=== PATIENT | female | born 1955 | race Caucasian/White ===

== ENCOUNTER 2016-05-23 13:51 | Outpatient (RCR) | payer MEDICARE ==
--- OUTSIDE RECORDS SUMMARY | 2016-04-12 13:17 | XMS REPORT | Continuity of Care Document ---
Author Author [facility] Organization [facility] Address Unknown Phone Unavailable Care Team Providers Care Blue Prints Trimmer Name Role Phone SHANTA PARISI MD PCP Insurance Providers Payer Name Policy Number Subscriber Name Relationship [employer] [id number] Ana Garcia 18 Self / Same As Patient Advance Directives Directive Response Recorded Date/Time Advance Directives Yes 07/16/14 11:47am Health Care Power of Manager Van Y jeanette- 07/16/14 11:47am Organ Donor No 07/16/14 11:47am Resuscitation Status Full Code 07/16/14 11:47am Problems No known problems or medical conditions. Medications Medication Dose Route Sig Days/Qty Instructions Order Date Discontinued Date Status Clarithromycin 03/06/09 08/22/12 Discontinued Oseltamivir Phosphate 03/06/09 08/22/12 Discontinued Celecoxib 200 Mg PO DAILY PRN can restart in three days 03/06/0910/29 Discontinued Promethazine HCl/Codeine 03/06/09 08/22/12 Discontinued Enalapril Maleate 20 Mg PO DAILY 08/22/12 08/24/12 Discontinued Methotrexate Sodium/Pf 7.5 Mg IJ Q7D 08/22/12 10/29/13 Discontinued [Humira] INJ Q14D 08/22/12 Active Acetaminophen 650 Mg PO EVERY 4HRS PRN 08/24/12 11/06/13 Discontinued Albuterol 2.5 Mg INH THREE TIMES A DAY 1 treatment three times a day 10/29/13 Discontinued Azithromycin 500 Mg PO DAILY 3 Days 08/24/12 10/29/13 Discontinued Cefdinir (Omnicef) 300 Mg PO DAILY 5 Days take for 5 days 08/24/1210/29 Discontinued Prednisone 40 Mg PO DAILY 3 Days 08/24/12 10/29/13 Discontinued Lactobacillus Rhamnosus Gg 1 Each PO DAILY 5 Days may use [employer] 08/24/12 10/29/13 Discontinued Methotrexate Sodium/Pf 0.9 Ml SQ WEEKLY 10/29/13 11/06/13 Discontinued Tramadol Hcl 50 Mg PO BEDTIME PRN PAIN 10/29/13 Active Oxycodone HCl (OxyCONtin) 1 Tab PO BEDTIME 20 Qty 10/29/13 07/16/14 Discontinued Hydroxychloroquine Sulfate 400 Mg PO DAILY 10/29/13 07/16/14 Discontinued Meloxicam (Mobic) 15 Mg PO DAILY 10/29/13 11/06/13 Discontinued Meloxicam (Mobic) 15 Mg PO BEDTIME 07/16/14 Active Enalapril Maleate 20 Mg PO BEDTIME 07/16/14 Active Methotrexate Sodium/Pf 0.9 Ml IJ Sunday07/16/14 Active Acetaminophen 650 Mg PO BEDTIME 07/16/14 Active Cephalexin Monohydrate (Keflex) 500 Mg PO FOUR TIMES DAILY 07-15-14 #12 FILLED 07/16/14 Active Social History Social History Problem Response Recorded Date/Time Alcohol Use Denies Use 07/16/2014 10:00am Recreational Drug Use No 07/16/2014 10:00am Recent Foreign Travel No 11/05/2013 1:08pm Recent Infectious Disease Exposure No 11/05/2013 1:08pm Hospitalization with Isolation Denies 11/07/2013 11:27am Smoking Status Never a Smoker 07/16/2014 11:47am Query Response Start Date Stop Date Smoking Status Never a Smoker Hospital Discharge Instructions Patient Instructions Physician Instructions Prescription: Call to Patients Pharmacy Patient Instructions: followup one week in office Discharge Diet: No Restrictions Drink 6-8 Glasses of Fluid/Day: Yes Driving Instructions: You May Drive Plan of Care Discharge Date 07/21/14 11:05am Disposition 30 STILL A PATIENT Instructions/Education Provided Cellulitis (DC) Prescriptions See Medications Section Referrals SHANTA PARISI MD (Unspecified) 07/28/14 Address: [address] [place] [id number] Reason(s) for Referral: 9:30 am Functional Status Query Response Date Recorded Comprehension Ability Understands Concepts July 20, 2014 9:06am Allergies, Adverse Reactions, Alerts Allergen Type Severity Reaction Status Last Updated Sulfa (Sulfonamide Antibiotics) ([id number]) Allergy Unknown Active 06/20 morphine Allergy Unknown ITCHING AND VOMITING Active 11/05/13 Codeine Adverse Reaction Mild gi symptoms Active 11/05/13 sulfamethoxazole ([id number]) Adverse Reaction Mild Active 11/05/13 Trimethoprim Adverse Reaction Mild Active 11/05/13 Immunizations Name Given Type Date of Pneumonia Vaccine 02/05/12 Historical Tetanus Booster (TDap) Unknown Historical influenza, split (incl. purified surface antigen) 07/17/14 Administered Vital Signs Acute Vital Signs Vital Response Date/Time Temperature (Fahrenheit) 98.1 degrees F (97.6 - 99.5) Temperature (Calculated Celsius) 36.01170 degrees C (36.4 - 37.5) Temperature Source Temporal Pulse Rate (adult) 60 bpm (60 - 90) Respiratory Rate 20 bpm (12 - 24) O2 Sat by Pulse Oximetry 97 % (88 - 100) Blood Pressure 134/77 mm Hg Pain Pain Intensity 0 Height (Feet) 5 feet Height (Inches) 3.00 inches Height (Calculated Centimeters) 160.866384 cm Weight (Pounds) 130 pounds Weight (Calculated Grams) 07074.009 gm Weight (Calculated Kilograms) 58.458137 kilograms Calculated BMI 23.03 Results Laboratory Results Test Name Result Units Flags Reference Collection Date/Time Result Date/ Time Comments White Blood Count 10.4 10^3/uL 4.3-11.0 07/19/2014 5:05am 07/19/2014 5: 52am Red Blood Count 3.66 10^6/uL L 4.35-5.85 07/19/2014 5:05am 07/19/2014 5: 52am Hemoglobin 9.8 G/DL L 11.5-16.0 07/19/2014 5:05am 07/19/2014 5:52am Hematocrit 31 % L 35-52 07/19/2014 5:05am 07/19/2014 5:52am Mean Corpuscular Volume 84 FL 80-99 07/19/2014 5:05am 07/19/2014 5: 52am Mean Corpuscular Hemoglobin 27 PG 25-34 07/19/2014 5:05am 07/19/2014 5: 52am Mean Corpuscular Hemoglobin Concent 32 G/DL 32-36 07/19/2014 5:05am 5:52am Red Cell Distribution Width 14.7 % H 10.0-14.5 07/19/2014 5:05am 2014 5:52am Platelet Count 273 10^3/uL 130-400 07/19/2014 5:05am 07/19/2014 5:52am Mean Platelet Volume 10.1 FL 7.4-10.4 07/19/2014 5:05am 07/19/2014 5: 52am Neutrophils (%) (Auto) 65 % 42-75 07/19/2014 5:05am 07/19/2014 5:52am Lymphocytes (%) (Auto) 25 % 12-44 07/19/2014 5:05am 07/19/2014 5:52am Monocytes (%) (Auto) 8 % 0-12 07/19/2014 5:05am 07/19/2014 5:52am Eosinophils (%) (Auto) 2 % 0-10 07/19/2014 5:05am 07/19/2014 5:52am Basophils (%) (Auto) 0 % 0-10 07/19/2014 5:05am 07/19/2014 5:52am Neutrophils # (Auto) 6.8 X 10^3 1.8-7.8 07/19/2014 5:05am 07/19/2014 5: 52am Lymphocytes # (Auto) 2.6 X 10^3 1.0-4.0 07/19/2014 5:05am 07/19/2014 5: 52am Monocytes # (Auto) 0.8 X 10^3 0.0-1.0 07/19/2014 5:05am 07/19/2014 5: 52am Eosinophils # (Auto) 0.2 10^3/uL 0.0-0.3 07/19/2014 5:05am 07/19/2014 5 :52am Basophils # (Auto) 0.0 10^3/uL 0.0-0.1 07/19/2014 5:05am 07/19/2014 5: 52am Neutrophils % (Manual) 83 % 07/16/2014 10:25am 07/16/2014 11:12am Band Neutrophils 0 % 07/16/2014 10:25am 07/16/2014 11:12am Lymphocytes % (Manual) 10 % 07/16/2014 10:25am 07/16/2014 11:12am Monocytes % (Manual) 7 % 07/16/2014 10:25am 07/16/2014 11:12am Eosinophils % (Manual) 0 % 07/16/2014 10:25am 07/16/2014 11:12am Basophils % (Manual) 0 % 07/16/2014 10:25am 07/16/2014 11:12am Clumped Platelets RARE GIANT PLATELET NOTED ON SMEAR 07/16/2014 10: 25am 07/16/2014 11:12am Anisocytosis SLIGHT 07/16/2014 10:25am 07/16/2014 11:12am Microcytosis SLIGHT 07/16/2014 10:25am 07/16/2014 11:12am Sodium Level 136 MMOL/L 135-145 07/16/2014 10:25am 07/16/2014 10:55am Potassium Level 3.9 MMOL/L 3.6-5.0 07/16/2014 10:25am 07/16/2014 10: 55am Chloride Level 102 MMOL/L 98-107 07/16/2014 10:25am 07/16/2014 10:55am Carbon Dioxide Level 27 MMOL/L 21-32 07/16/2014 10:25am 07/16/2014 10: 55am Blood Urea Nitrogen 19 MG/DL H 7-18 07/16/2014 10:25am 07/16/2014 10: 55am Creatinine 0.77 MG/DL 0.60-1.30 07/16/2014 10:25am 07/16/2014 10:55am BUN/Creatinine Ratio 07/16/2014 10:25am 07/16/2014 10:55am Estimat Glomerular Filtration Rate > 60 07/16/2014 10:25am 2014 10:55am GFR INTERPRETIVE DATA UNITS FOR ESTIMATED GFR (eGFR): mL/min/1.73 M2 REFERENCE RANGE FOR ESTIMATED GFR (eGFR) eGFR NORMAL eGFR >60 MODERATELY DECREASED eGFR 30-59 SEVERLY DECREASED eGFR 15-29 KIDNEY FAILURE <15 (OR DIALYSIS) Glucose Level 131 MG/DL H 70-105 07/16/2014 10:25am 07/16/2014 10:55am Calcium Level 9.5 MG/DL 8.5-10.1 07/16/2014 10:25am 07/16/2014 10:55am Total Bilirubin 0.8 MG/DL 0.1-1.0 07/16/2014 10:25am 07/16/2014 10: 55am Alkaline Phosphatase 91 U/L 40-136 07/16/2014 10:25am 07/16/2014 10: 55am Aspartate Amino Transf (AST/SGOT) 11 U/L 5-34 07/16/2014 10:25am 2014 10:55am Alanine Aminotransferase (ALT/SGPT) 11 U/L 0-55 07/16/2014 10:25am 04/2015 10:55am Total Protein 7.1 G/DL 6.4-8.2 07/16/2014 10:25am 07/16/2014 10:55am Albumin 3.7 G/DL 3.2-4.5 07/16/2014 10:25am 07/16/2014 10:55am Vancomycin Level Trough 12.9 UG/ML 10.0-20.0 07/17/2014 11:05am 2014 11:40am Microbiology Results Procedure Source Result Collection Date/Time Result Date/Time Wound Culture Ulcer, Foot, Right STAPHYLOCOCCUS AUREUS 07/17/2014 3:35pm 7:34am STREP SPECIES, BETA HEMOLYTIC 07/17/2014 3:35pm 07/19/2014 7:34am STAPHYLOCOCCUS AUREUS 07/17/2014 3:35pm 07/19/2014 7:34am STREP SPECIES, BETA HEMOLYTIC 07/17/2014 3:35pm 07/19/2014 7:34am STAPHYLOCOCCUS AUREUS 07/17/2014 3:35pm 07/19/2014 7:34am STREP, BETA HEMOLYTIC GROUP A 07/17/2014 3:35pm 07/19/2014 7:34am STAPHYLOCOCCUS AUREUS 07/17/2014 3:35pm 07/19/2014 7:34am STREP, BETA HEMOLYTIC GROUP A 07/17/2014 3:35pm 07/19/2014 7:34am Procedures No known history of procedures. Encounters Encounter Location Date/Time Discharged Inpatient Via [facility] 07/16/14 9:42am
[~2016-05-23 13:51] MED LIST: AC325T PO; ALB0.5V INH; AZIT500T PO; CEFD300C3 PO; CEPH250T PO; CEPH500C PO; CLAR-19; CLCX200C PO; ENAL20TA PO; HUMIRA INJ; HYDR200T46 PO; MELO-195 PO; METH25VI2 IJ; METH25VI24 IJ; METH25VI24 SQ; NITR-65 PO; OSLT75C; OXC10TCR PO; PANT20TA2 PO; PRCD5U; PRD20T PO; PROBIOTIC1 EACH PO; TRAM50TA2 PO
== END 2016-05-26 08:33 | disposition home or self-care (01) ==
DX: Z09 Encounter for follow-up examination after completed treatment for conditions other than malignant neoplasm (principal); M47.12 Other spondylosis with myelopathy, cervical region; Z98.1 Arthrodesis status

== ENCOUNTER → 2017-06-18 | Outpatient (CLI) | payer MEDICARE ==
--- NOTE | 2017-06-18 13:25 | Diagnostic Imaging Report ---
CLINICAL INDICATION: Patient with history of 3 C-spine surgeries and shoulder surgery. Patient recently having neck/shoulder pain and harder to move shoulders. EXAM: Axial CT scan of the cervical spine performed without IV contrast. Sagittal and coronal reformatted images were created. COMPARISON: CT scan of the cervical myelogram dated 10/21/2013. FINDINGS: Compared to the prior CT myelogram, there has been interval postop changes with C3-C4 anterior cervical interbody fusion. There is solid intervertebral bony bridging/fusion seen. Again seen C4-C7 anterior cervical interbody fusion with solid intervertebral bony bridging/fusion again seen. There are also interval postop changes with C2 through C5 posterior fusion with hardware with bilateral screws and spanning rods. There are also laminectomies at the C3-C4 levels with interval decompression of the previously seen area of severe central canal stenosis at the C3-C4 level. There is also interval resection of C3-C4 spurs causing bilateral neuroforaminal narrowing with only mild bony neuroforaminal narrowing present. There is interval removal of the previously seen C4 anterior cervical screws. C1-C2: There are stable degenerative spurs seen anteriorly. There is no significant bony central canal narrowing. C2-C3: Again seen suspected posterior disc bulge. There is no significant bony central spinal canal or neuroforaminal narrowing. C3-C4: As described above. C4-C5: Interval decompression of the thecal sac. There are stable small posterior vertebral spurs. There is no significant bony central canal or neuroforaminal narrowing. C5-C6: Stable small posterior vertebral spurs which cause stable mild impression upon the thecal sac. There is stable mild right neuroforaminal narrowing. C6-C7: Stable small posterior and left paracentral vertebral spurs which cause mild central canal narrowing. There is no significant bony neuroforaminal narrowing. C7-T1: There is no significant change to the diffuse disc bulge with moderate to severe loss of intervertebral disc height, endplate irregularity, and Schmorl's nodes. Again seen hypertrophic anterior disc spurs. There is no significant bony central canal narrowing. There is stable mild right neuroforaminal narrowing and no significant left neuroforaminal narrowing. There is moderate consolidation in air-fluid levels in the sphenoid sinus. Visualized upper lung hopkins show no significant abnormality. IMPRESSION: 1: There are interval postop changes with placement of C3-C4 anterior cervical disc fusion and C2 through C5 posterior fusion hardware. There are also interval C3-C4 laminectomies. There is interval decompression of the previously seen severe central canal narrowing at the C3-C4 level and also improved patency of the bilateral neuroforamen regions. There is interval solid bony fusion from the C3-C4 levels. 2: Besides removal of the C4 anterior cervical screws, the remainder of the C4-C7 anterior disc fusion hardware has not significantly changed. There is again seen solid bony fusion from C4-C7 levels. 3: There are stable severe degenerative disc changes at the C7-T1 level. 4: Cervical spine shows stable degenerative disease. Dictated by: Dictated on workstation # [id number]
== END ==
LOC: RAD 12:00
PROVIDERS: ATTEND Family Medicine
DX: M50.33 Other cervical disc degeneration, cervicothoracic region (principal); M25.511 Pain in right shoulder; M25.512 Pain in left shoulder; Z98.1 Arthrodesis status; Z98.890 Other specified postprocedural states
CPT/HCPCS: 72125

== ENCOUNTER 2017-09-04 15:22 | Outpatient (RCR) | payer MEDICARE ==
[2017-07-03 12:10] VITALS: BP 119/67
[2017-07-03] MEDS: CERTOLIZUMAB PEGOL SQ SCH (13:06)
[2017-07-03 13:09] VITALS: BP 119/67
[~2017-09-04] VITALS: Ht 157.5 cm; Wt 56.2 kg
[2017-09-04 15:20] VITALS: BP 125/72
[~2017-09-04 15:22] MED LIST changes: +AMLO5TAB2 PO; +CERT400K SQ; +HYDR200T78 PO; +MELA5TAB19 PO; +OXYC-529 PO
[2017-09-04] MEDS: CERTOLIZUMAB PEGOL SQ SCH (16:46)
== END 2017-10-01 | disposition home or self-care (01) ==
LOC: SDC 15:22
PROVIDERS: ATTEND Family Medicine
DX: M05.79 Rheumatoid arthritis with rheumatoid factor of multiple sites without organ or systems involvement (principal); M25.50 Pain in unspecified joint
CPT/HCPCS: 96372

== ENCOUNTER 2018-01-28 12:39 | Outpatient (RCR) | payer MEDICARE ==
[~2018-01-28] VITALS: Ht 157.5 cm; Wt 56.2 kg
[~2018-01-28 12:39] MED LIST changes: -AMLO5TAB2 PO; +AMLO5TAB7 PO
[2018-01-28 12:58] VITALS: BP 106/52
[2018-01-28] MEDS ORDERED: CERTOLIZUMAB PEGOL SQ SCH (13:00)
== END 2018-02-03 | disposition home or self-care (01) ==
LOC: SDC 12:39
PROVIDERS: ATTEND Family Medicine
DX: M05.79 Rheumatoid arthritis with rheumatoid factor of multiple sites without organ or systems involvement (principal); M25.50 Pain in unspecified joint
CPT/HCPCS: 36415; 82306; 96372

== ENCOUNTER 2018-09-06 12:20 | Outpatient (RCR) | payer MEDICARE ==
[2018-06-24 12:55] VITALS: BP 130/79
[2018-06-24] MEDS: CERTOLIZUMAB PEGOL SQ SCH (13:18)
[~2018-09-06] VITALS: Ht 157.5 cm; Wt 56.2 kg
[~2018-09-06 12:20] MED LIST changes: -AMLO5TAB7 PO; +AMLO5TAB9 PO
[2018-09-06 12:30] VITALS: BP 164/82
[2018-09-06] MEDS: CERTOLIZUMAB PEGOL SQ SCH (12:49)
== END 2018-09-22 | disposition home or self-care (01) ==
LOC: SDC 12:20
PROVIDERS: ATTEND Internal Medicine Rheumatology
DX: M05.79 Rheumatoid arthritis with rheumatoid factor of multiple sites without organ or systems involvement (principal)
CPT/HCPCS: 96372

== ENCOUNTER 2019-10-01 14:25 | Outpatient (RCR) | payer MEDICARE ==
[~2019-10-01 14:25] MED LIST changes: -OXYC-529 PO; +OXYC5TAB96 PO
== END 2019-11-11 14:15 | disposition home or self-care (01) ==
PROVIDERS: ATTEND Orthopaedic Surgery
DX: Z47.1 Aftercare following joint replacement surgery (principal); M06.9 Rheumatoid arthritis, unspecified; Z96.622 Presence of left artificial elbow joint; Z96.611 Presence of right artificial shoulder joint

== ENCOUNTER 2020-02-16 15:40 | Outpatient (RCR) | payer MEDICARE ==
[~2020-02-16 15:40] MED LIST changes: +AMLO-250 PO; -AMLO5TAB9 PO; +OXC5T PO; -OXYC5TAB96 PO
== END 2020-03-08 10:06 | disposition home or self-care (01) ==
PROVIDERS: ATTEND Internal Medicine Rheumatology
DX: S62.607D Fracture of unspecified phalanx of left little finger, subsequent encounter for fracture with routine healing (principal); X58.XXXD Exposure to other specified factors, subsequent encounter

== ENCOUNTER → 2021-02-01 | Outpatient (CLI) | payer MEDICARE ==
[2021-02-01 13:10] LABS: ALBUMIN 4.2 GM/DL (3.2-4.5); BILIRUBIN,TOTAL 0.4 MG/DL (0.1-1.0); CALCIUM 9.8 MG/DL (8.5-10.1); PHOSPHORUS 3.9 MG/DL (2.3-4.7); POTASSIUM 3.9 MMOL/L (3.6-5.0); TOTAL PROTEIN 7.9 GM/DL (6.4-8.2)
== END ==
LOC: LAB 12:21
PROVIDERS: ATTEND Internal Medicine
DX: E55.9 Vitamin D deficiency, unspecified (principal); E21.1 Secondary hyperparathyroidism, not elsewhere classified
CPT/HCPCS: 36415; 80053; 82306; 83970; 84100

== ENCOUNTER → 2021-03-24 | Outpatient (CLI) | payer MEDICARE ==
--- NOTE | 2021-03-24 14:32 | Diagnostic Imaging Report ---
EXAMINATION: US Abdomen limited. TECHNIQUE: Multiple real-time grayscale images were obtained over the right upper quadrant in various projections. HISTORY: RUQ PAIN. COMPARISON: None available. FINDINGS: Pancreas: The pancreas is nonvisualized secondary to overlying bowel gas. Liver: The liver is normal in echogenicity and contour. No focal lesions are seen. The portal vein is patent with hepatopetal flow. Gallbladder and biliary tree: Gallbladder is normal without wall thickening, pericholecystic fluid, or sonographic Soto sign. There is mild extrahepatic biliary duct dilatation. No intrahepatic biliary ductal dilatation. The common duct measures 1.1 cm. Right kidney: The right kidney is normal without hydronephrosis. Aorta and IVC: The visualized aorta and inferior vena cava are normal. Fluid: No ascites is seen. There is an indeterminate hypoechoic lesion seen posterior to the gallbladder measuring 3.6 x 3.9 x 3.9 cm. IMPRESSION: 1. Dilatation of the common bile duct measuring up to 1.1 cm. 2. Indeterminate 3.9 cm hypoechoic lesion posterior to the gallbladder. Consider further evaluation with MRCP with IV contrast to evaluate biliary duct dilatation in this lesion. Dictated by: Dictated on workstation # [id number]
== END ==
LOC: RAD 13:44
PROVIDERS: ATTEND Physician Assistant
DX: K82.9 Disease of gallbladder, unspecified (principal); K83.8 Other specified diseases of biliary tract
CPT/HCPCS: 76705

== ENCOUNTER → 2021-03-28 | Outpatient (CLI) | payer MEDICARE ==
--- NOTE | 2021-03-28 09:19 | Diagnostic Imaging Report ---
EXAMINATION: MRI of the abdomen without contrast. MRCP TECHNIQUE: Multiplanar, multisequence MR images of the abdomen were obtained without intravenous contrast including 3D MIP MRCP images. HISTORY: Right upper quadrant pain, possible liver mass on ultrasound. COMPARISON: None available. FINDINGS: The liver is normal without steatosis. No suspicious liver lesions are seen. No surface nodularity. Gallbladder is distended but no stones are seen. There is mild dilation of the common bile duct measuring up to 11 mm. No stones or masses seen. No intrahepatic biliary ductal dilation. No correlate is seen for the sonographic abnormality of a hypoechoic lesion posterior to the gallbladder. This may have represented a loop of bowel. Pancreas is normal. Spleen is normal. Adrenal glands are normal. Kidneys are normal without hydronephrosis. Visualized bowel is normal. No lymphadenopathy is seen. Lung bases are clear. No osseus lesions are seen. The left hemidiaphragm is elevated. IMPRESSION: 1. Mild dilation of the common bile duct measuring up to 11 mm. No stones or masses seen. 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 2. No correlate for the scintigraphic abnormality of the mass posterior to the gallbladder. This may represent a distended loop of bowel. No masses seen on this exam. Dictated by: Dictated on workstation # [id number]
== END ==
LOC: RAD 08:00
PROVIDERS: ATTEND Physician Assistant
DX: R10.11 Right upper quadrant pain (principal)
CPT/HCPCS: 74181

== ENCOUNTER → 2021-04-04 | Outpatient (CLI) | payer MEDICARE ==
[~2021-04-04] MED LIST changes: +GADOTERATE 0.5 MMOL/ML (CLARISCAN) 15 ML VIAL IV ONE
--- NOTE | 2021-04-04 09:54 | Diagnostic Imaging Report ---
EXAMINATION: MRI of the abdomen with and without contrast. TECHNIQUE: Multiplanar, multisequence MR images of the abdomen were obtained with and without intravenous contrast. HISTORY: Liver lesion. COMPARISON: None available. FINDINGS: The liver is normal size. There is no hepatic steatosis. No suspicious liver lesions are seen. No surface nodularity. The gallbladder is normal. There is unchanged mild dilation of the common bile duct. Pancreas is normal. The pancreatic duct is normal. Spleen is normal. Adrenal glands are normal. The kidneys are normal. There is no hydronephrosis. Visualized bowel is normal. No lymphadenopathy is seen. Lung bases are clear. No osseus lesions are seen. There has been a lumbar spine fusion. IMPRESSION: 1. No liver mass is seen. No abnormal enhancement of the liver. 2. Unchanged mild dilation of the common bile duct. Dictated by: Dictated on workstation # [id number]
== END ==
LOC: RAD 08:00
PROVIDERS: ATTEND Surgery
DX: K83.8 Other specified diseases of biliary tract (principal)
CPT/HCPCS: 74183

== ENCOUNTER 2021-04-11 09:53 | Outpatient (CLI) | payer MEDICARE, OTHER ==
[~2021-04-11 09:53] MED LIST changes: -GADOTERATE 0.5 MMOL/ML (CLARISCAN) 15 ML VIAL IV ONE
[2021-04-11 10:14] VITALS: BP 118/68
[2021-04-11] MEDS ORDERED: diphenhydrAMINE 25 MG TAB (BENADRYL) PO ONE (10:30)
[2021-04-11] MEDS ORDERED: ACETAMINOPHEN 325 MG TABLET PO ONE (10:30)
[2021-04-11] MEDS ORDERED: [UNRECOGNIZED DRUG - REMARK] IV ONE (10:30)
[2021-04-11 10:57] LABS: BASOPHILS % (AUTO) 1 % (0-10); EOSINOPHILS # (AUTO) 0.1 10^3/uL (0.0-0.3); EOSINOPHILS % (AUTO) 2 % (0-10); HEMATOCRIT 38 % (35-52); HEMOGLOBIN 12.3 g/dL (11.5-16.0); LYMPHOCYTES # (AUTO) 1.8 10^3/uL (1.0-4.0); LYMPHOCYTES % (AUTO) 29 % (12-44); MEAN CORPUSCULAR HEMOGLOBIN 29 pg (25-34); MEAN CORPUSCULAR HGB CONC 32 g/dL (32-36); MEAN CORPUSCULAR VOLUME 89 fL (80-99); MEAN PLATELET VOLUME 9.5 fL (9.0-12.2); MONOCYTES # (AUTO) 0.4 10^3/uL (0.0-1.0); MONOCYTES % (AUTO) 6 % (0-12); NEUTROPHILS # (AUTO) 3.8 10^3/uL (1.8-7.8); NEUTROPHILS % (AUTO) 62 % (42-75); PLATELET COUNT 267 10^3/uL (130-400); WHITE BLOOD COUNT 6.2 10^3/uL (4.3-11.0)
[2021-04-11 11:17] LABS: CREATININE SERUM 0.9 MG/DL (0.60-1.30)
== END 2021-04-11 12:00 | disposition home or self-care (01) ==
LOC: SDC 09:53
PROVIDERS: ATTEND Internal Medicine Rheumatology
DX: Z51.81 Encounter for therapeutic drug level monitoring (principal); M05.79 Rheumatoid arthritis with rheumatoid factor of multiple sites without organ or systems involvement
CPT/HCPCS: 36415; 82565; 84450; 84460; 85025; 86141; 96365; J0129

== ENCOUNTER → 2021-05-09 | Outpatient (CLI) | payer MEDICARE, OTHER ==
[~2021-05-09] VITALS: Ht 157.5 cm; Wt 54.1 kg
[~2021-05-09] MED LIST changes: +ACETAMINOPHEN 325 MG TABLET ONE; +ACETAMINOPHEN 325 MG TABLET PO ONE; +[UNRECOGNIZED DRUG - REMARK] IV ONE; +diphenhydrAMINE 25 MG TAB (BENADRYL) PO ONE
[2021-05-09 09:45] VITALS: BP 150/90
[2021-05-09 10:04] LABS: BASOPHILS % (AUTO) 1 % (0-10); EOSINOPHILS # (AUTO) 0.2 10^3/uL (0.0-0.3); EOSINOPHILS % (AUTO) 3 % (0-10); HEMATOCRIT 40 % (35-52); HEMOGLOBIN 12.8 g/dL (11.5-16.0); LYMPHOCYTES # (AUTO) 1.9 10^3/uL (1.0-4.0); LYMPHOCYTES % (AUTO) 31 % (12-44); MEAN CORPUSCULAR HEMOGLOBIN 28 pg (25-34); MEAN CORPUSCULAR HGB CONC 32 g/dL (32-36); MEAN CORPUSCULAR VOLUME 89 fL (80-99); MEAN PLATELET VOLUME 9.1 fL (9.0-12.2); MONOCYTES # (AUTO) 0.4 10^3/uL (0.0-1.0); MONOCYTES % (AUTO) 6 % (0-12); NEUTROPHILS # (AUTO) 3.6 10^3/uL (1.8-7.8); NEUTROPHILS % (AUTO) 59 % (42-75); PLATELET COUNT 270 10^3/uL (130-400)
[2021-05-09 10:28] LABS: CREATININE SERUM 1.05 MG/DL (0.60-1.30)
== END ==
LOC: SDC 09:36
PROVIDERS: ATTEND Internal Medicine Rheumatology
DX: Z51.81 Encounter for therapeutic drug level monitoring (principal); M05.79 Rheumatoid arthritis with rheumatoid factor of multiple sites without organ or systems involvement
CPT/HCPCS: 36415; 82565; 84450; 84460; 85025; 86141; 96365; J0129

== ENCOUNTER 2021-06-07 09:05 | Outpatient (CLI) | payer MEDICARE, OTHER ==
[~2021-06-07 09:05] MED LIST changes: -ACETAMINOPHEN 325 MG TABLET ONE; -ACETAMINOPHEN 325 MG TABLET PO ONE; -[UNRECOGNIZED DRUG - REMARK] IV ONE; -diphenhydrAMINE 25 MG TAB (BENADRYL) PO ONE
[2021-06-07 09:15] VITALS: BP 122/107
[2021-06-07] MEDS ORDERED: ACETAMINOPHEN 325 MG TABLET ONE (09:25)
[2021-06-07] MEDS ORDERED: diphenhydrAMINE 25 MG TAB (BENADRYL) PO ONE ×2 (09:25→09:30)
[2021-06-07] MEDS ORDERED: [UNRECOGNIZED DRUG - REMARK] IV ONE (09:30)
[2021-06-07] MEDS ORDERED: ACETAMINOPHEN 325 MG TABLET PO ONE (09:30)
[2021-06-07 09:48] LABS: BASOPHILS % (AUTO) 0 % (0-10); EOSINOPHILS # (AUTO) 0.1 10^3/uL (0.0-0.3); EOSINOPHILS % (AUTO) 2 % (0-10); HEMATOCRIT 39 % (35-52); LYMPHOCYTES # (AUTO) 1.5 10^3/uL (1.0-4.0); LYMPHOCYTES % (AUTO) 24 % (12-44); MEAN CORPUSCULAR HEMOGLOBIN 28 pg (25-34); MEAN CORPUSCULAR HGB CONC 31 g/dL (32-36); MEAN CORPUSCULAR VOLUME 90 fL (80-99); MEAN PLATELET VOLUME 9.5 fL (9.0-12.2); MONOCYTES # (AUTO) 0.4 10^3/uL (0.0-1.0); MONOCYTES % (AUTO) 6 % (0-12); NEUTROPHILS # (AUTO) 4.1 10^3/uL (1.8-7.8); NEUTROPHILS % (AUTO) 67 % (42-75); PLATELET COUNT 303 10^3/uL (130-400); WHITE BLOOD COUNT 6.1 10^3/uL (4.3-11.0)
[2021-06-07 10:09] LABS: CREATININE SERUM 0.94 MG/DL (0.60-1.30)
== END 2021-06-07 10:20 | disposition home or self-care (01) ==
LOC: SDC 09:05
PROVIDERS: ATTEND Internal Medicine Rheumatology
DX: Z51.81 Encounter for therapeutic drug level monitoring (principal); M05.79 Rheumatoid arthritis with rheumatoid factor of multiple sites without organ or systems involvement
CPT/HCPCS: 36415; 82565; 84450; 84460; 85025; 86141; 96365; J0129

== ENCOUNTER → 2021-07-05 | Outpatient (CLI) | payer MEDICARE, OTHER ==
[~2021-07-05] VITALS: Ht 157.5 cm; Wt 54.0 kg
[~2021-07-05] MED LIST changes: +ABATACEPT IV SCH; +ACETAMINOPHEN 325 MG TABLET ONE; +ACETAMINOPHEN 325 MG TABLET PO SCH; +NS IV SCH; +diphenhydrAMINE 25 MG TAB (BENADRYL) PO SCH
[2021-07-05 09:20] VITALS: BP 125/61
[2021-07-05 10:10] LABS: BASOPHILS # (AUTO) 0.1 10^3/uL (0.0-0.1); BASOPHILS % (AUTO) 1 % (0-10); EOSINOPHILS # (AUTO) 0.2 10^3/uL (0.0-0.3); EOSINOPHILS % (AUTO) 2 % (0-10); HEMATOCRIT 37 % (35-52); HEMOGLOBIN 11.7 g/dL (11.5-16.0); LYMPHOCYTES # (AUTO) 1.8 10^3/uL (1.0-4.0); LYMPHOCYTES % (AUTO) 27 % (12-44); MEAN CORPUSCULAR HEMOGLOBIN 28 pg (25-34); MEAN CORPUSCULAR HGB CONC 32 g/dL (32-36); MEAN CORPUSCULAR VOLUME 89 fL (80-99); MEAN PLATELET VOLUME 9.7 fL (9.0-12.2); MONOCYTES # (AUTO) 0.5 10^3/uL (0.0-1.0); MONOCYTES % (AUTO) 7 % (0-12); NEUTROPHILS # (AUTO) 4.3 10^3/uL (1.8-7.8); NEUTROPHILS % (AUTO) 63 % (42-75); PLATELET COUNT 251 10^3/uL (130-400); WHITE BLOOD COUNT 6.8 10^3/uL (4.3-11.0)
[2021-07-05 10:16] LABS: CREATININE SERUM 0.89 MG/DL (0.60-1.30)
== END ==
LOC: SDC 09:13
PROVIDERS: ATTEND Internal Medicine Rheumatology
DX: M05.89 Other rheumatoid arthritis with rheumatoid factor of multiple sites (principal)
CPT/HCPCS: 36415; 82565; 84450; 84460; 85025; 86141; 96365; J0129

== ENCOUNTER 2021-08-02 08:02 | Outpatient (CLI) | payer MEDICARE, OTHER ==
[~2021-08-02 08:02] MED LIST changes: -ABATACEPT IV SCH; -ACETAMINOPHEN 325 MG TABLET ONE; -ACETAMINOPHEN 325 MG TABLET PO SCH; -NS IV SCH; -diphenhydrAMINE 25 MG TAB (BENADRYL) PO SCH
[2021-08-02 08:10] VITALS: BP 142/95
[2021-08-02] MEDS ORDERED: ACETAMINOPHEN 325 MG TABLET ONE (08:11)
[2021-08-02] MEDS ORDERED: ABATACEPT IV SCH ×2 (08:15)
[2021-08-02] MEDS ORDERED: diphenhydrAMINE 25 MG TAB (BENADRYL) PO SCH (08:15)
[2021-08-02] MEDS ORDERED: ACETAMINOPHEN 325 MG TABLET PO SCH (08:15)
[2021-08-02] MEDS ORDERED: NS IV SCH ×2 (08:15)
[2021-08-02 08:44] LABS: BASOPHILS % (AUTO) 0 % (0-10); EOSINOPHILS # (AUTO) 0.2 10^3/uL (0.0-0.3); EOSINOPHILS % (AUTO) 2 % (0-10); HEMATOCRIT 37 % (35-52); HEMOGLOBIN 11.7 g/dL (11.5-16.0); LYMPHOCYTES % (AUTO) 27 % (12-44); MEAN CORPUSCULAR HEMOGLOBIN 28 pg (25-34); MEAN CORPUSCULAR HGB CONC 32 g/dL (32-36); MEAN CORPUSCULAR VOLUME 89 fL (80-99); MEAN PLATELET VOLUME 9.4 fL (9.0-12.2); MONOCYTES # (AUTO) 0.5 10^3/uL (0.0-1.0); MONOCYTES % (AUTO) 7 % (0-12); NEUTROPHILS # (AUTO) 4.6 10^3/uL (1.8-7.8); NEUTROPHILS % (AUTO) 63 % (42-75); PLATELET COUNT 272 10^3/uL (130-400); WHITE BLOOD COUNT 7.2 10^3/uL (4.3-11.0)
[2021-08-02 09:07] LABS: ALBUMIN 3.8 GM/DL (3.2-4.5); BILIRUBIN,TOTAL 0.4 MG/DL (0.1-1.0); CALCIUM 9.3 MG/DL (8.5-10.1); CREATININE SERUM 0.91 MG/DL (0.60-1.30); POTASSIUM 4.4 MMOL/L (3.6-5.0); TOTAL PROTEIN 6.7 GM/DL (6.4-8.2)
== END 2021-08-02 09:20 | disposition home or self-care (01) ==
LOC: SDC 08:02
PROVIDERS: ATTEND Internal Medicine Rheumatology
DX: M05.79 Rheumatoid arthritis with rheumatoid factor of multiple sites without organ or systems involvement (principal); M05.89 Other rheumatoid arthritis with rheumatoid factor of multiple sites
CPT/HCPCS: 36415; 80053; 85025; 96365; J0129

== ENCOUNTER → 2021-08-30 | Outpatient (CLI) | payer MEDICARE, OTHER ==
[~2021-08-30] MED LIST changes: +ACETAMINOPHEN 325 MG TABLET PO ONE; +ACETAMINOPHEN 500 MG TAB (TYLENOL) ONE; +ACETAMINOPHEN 500 MG TAB (TYLENOL) PO SCH; +[UNRECOGNIZED DRUG - REMARK] IV SCH; +diphenhydrAMINE 25 MG TAB (BENADRYL) PO ONE
[2021-08-30 08:15] LABS: BASOPHILS % (AUTO) 0 % (0-10); EOSINOPHILS # (AUTO) 0.2 10^3/uL (0.0-0.3); EOSINOPHILS % (AUTO) 4 % (0-10); HEMATOCRIT 38 % (35-52); LYMPHOCYTES % (AUTO) 30 % (12-44); MEAN CORPUSCULAR HEMOGLOBIN 29 pg (25-34); MEAN CORPUSCULAR HGB CONC 32 g/dL (32-36); MEAN CORPUSCULAR VOLUME 90 fL (80-99); MEAN PLATELET VOLUME 9.8 fL (9.0-12.2); MONOCYTES # (AUTO) 0.4 10^3/uL (0.0-1.0); MONOCYTES % (AUTO) 5 % (0-12); NEUTROPHILS # (AUTO) 4.1 10^3/uL (1.8-7.8); NEUTROPHILS % (AUTO) 61 % (42-75); PLATELET COUNT 274 10^3/uL (130-400); WHITE BLOOD COUNT 6.8 10^3/uL (4.3-11.0)
[2021-08-30 08:35] LABS: CREATININE SERUM 1.09 MG/DL (0.60-1.30)
[2021-08-30 09:03] VITALS: BP 114/66
== END ==
LOC: SDC 07:48
PROVIDERS: ATTEND Internal Medicine Rheumatology
DX: Z51.81 Encounter for therapeutic drug level monitoring (principal); M05.79 Rheumatoid arthritis with rheumatoid factor of multiple sites without organ or systems involvement
CPT/HCPCS: 36415; 82565; 84450; 84460; 85025; 86141; 96365; J0129

== ENCOUNTER → 2021-09-22 | Outpatient (CLI) | payer MEDICARE, OTHER ==
[~2021-09-22] MED LIST changes: -ACETAMINOPHEN 325 MG TABLET PO ONE; -ACETAMINOPHEN 500 MG TAB (TYLENOL) ONE; -ACETAMINOPHEN 500 MG TAB (TYLENOL) PO SCH; -[UNRECOGNIZED DRUG - REMARK] IV SCH; -diphenhydrAMINE 25 MG TAB (BENADRYL) PO ONE
== END ==
LOC: CARD 13:53
DX: Z01.810 Encounter for preprocedural cardiovascular examination (principal)
CPT/HCPCS: 93005

== ENCOUNTER → 2021-12-20 | Outpatient (CLI) | payer MEDICARE, OTHER ==
[~2021-12-20] VITALS: Wt 54.0 kg
[~2021-12-20] MED LIST changes: +ACETAMINOPHEN 325 MG TABLET PO ONE; +[UNRECOGNIZED DRUG - REMARK] IV SCH; +diphenhydrAMINE 25 MG TAB (BENADRYL) PO ONE
[2021-12-20 11:10] LABS: BASOPHILS # (AUTO) 0.1 10^3/uL (0.0-0.1); BASOPHILS % (AUTO) 1 % (0-10); EOSINOPHILS # (AUTO) 0.1 10^3/uL (0.0-0.3); EOSINOPHILS % (AUTO) 1 % (0-10); HEMATOCRIT 35 % (35-52); HEMOGLOBIN 10.9 g/dL (11.5-16.0); LYMPHOCYTES # (AUTO) 2.1 10^3/uL (1.0-4.0); LYMPHOCYTES % (AUTO) 19 % (12-44); MEAN CORPUSCULAR HEMOGLOBIN 28 pg (25-34); MEAN CORPUSCULAR HGB CONC 32 g/dL (32-36); MEAN CORPUSCULAR VOLUME 87 fL (80-99); MEAN PLATELET VOLUME 9.3 fL (9.0-12.2); MONOCYTES # (AUTO) 0.7 10^3/uL (0.0-1.0); MONOCYTES % (AUTO) 6 % (0-12); NEUTROPHILS # (AUTO) 7.8 10^3/uL (1.8-7.8); NEUTROPHILS % (AUTO) 73 % (42-75); PLATELET COUNT 353 10^3/uL (130-400); WHITE BLOOD COUNT 10.8 10^3/uL (4.3-11.0)
[2021-12-20 11:27] LABS: CREATININE SERUM 0.91 MG/DL (0.60-1.30)
[2021-12-20 11:43] VITALS: BP 145/72
== END ==
LOC: SDC 10:35
PROVIDERS: ATTEND Internal Medicine Rheumatology
DX: M05.89 Other rheumatoid arthritis with rheumatoid factor of multiple sites (principal)
CPT/HCPCS: 36415; 82565; 84450; 84460; 85025; 86141; 96365; J0129

== ENCOUNTER 2022-01-03 10:23 | Outpatient (RCR) | payer MEDICARE, OTHER ==
[~2022-01-03] VITALS: Wt 54.0 kg
[~2022-01-03 10:23] MED LIST changes: -ACETAMINOPHEN 325 MG TABLET PO ONE; -[UNRECOGNIZED DRUG - REMARK] IV SCH; -diphenhydrAMINE 25 MG TAB (BENADRYL) PO ONE
[2022-01-03 10:30] VITALS: BP 127/74
[2022-01-03] MEDS ORDERED: diphenhydrAMINE 25 MG TAB (BENADRYL) PO ONE ×2 (10:52→11:00)
[2022-01-03] MEDS ORDERED: ACETAMINOPHEN 325 MG TABLET ONE (10:52)
[2022-01-03] MEDS ORDERED: [UNRECOGNIZED DRUG - REMARK] IV SCH (10:54)
[2022-01-03 10:58] LABS: BASOPHILS % (AUTO) 1 % (0-10); EOSINOPHILS # (AUTO) 0.2 10^3/uL (0.0-0.3); EOSINOPHILS % (AUTO) 3 % (0-10); HEMATOCRIT 36 % (35-52); HEMOGLOBIN 11.2 g/dL (11.5-16.0); LYMPHOCYTES % (AUTO) 26 % (12-44); MEAN CORPUSCULAR HEMOGLOBIN 27 pg (25-34); MEAN CORPUSCULAR HGB CONC 32 g/dL (32-36); MEAN CORPUSCULAR VOLUME 86 fL (80-99); MEAN PLATELET VOLUME 9.6 fL (9.0-12.2); MONOCYTES # (AUTO) 0.5 10^3/uL (0.0-1.0); MONOCYTES % (AUTO) 6 % (0-12); NEUTROPHILS # (AUTO) 4.9 10^3/uL (1.8-7.8); NEUTROPHILS % (AUTO) 65 % (42-75); PLATELET COUNT 313 10^3/uL (130-400); WHITE BLOOD COUNT 7.6 10^3/uL (4.3-11.0)
[2022-01-03] MEDS ORDERED: ACETAMINOPHEN 325 MG TABLET PO ONE (11:00)
== END 2022-01-04 | disposition home or self-care (01) ==
LOC: SDC 10:23 → EDSTATUS 11:00
PROVIDERS: ATTEND Internal Medicine Rheumatology
DX: Z51.81 Encounter for therapeutic drug level monitoring (principal); M05.79 Rheumatoid arthritis with rheumatoid factor of multiple sites without organ or systems involvement; Z79.899 Other long term (current) drug therapy
CPT/HCPCS: 36415; 36592; 82565; 84450; 84460; 85025; 86141; 96365; J0129

== ENCOUNTER 2022-02-02 08:41 | Outpatient (RCR) | payer MEDICARE, OTHER ==
[2022-02-02] MEDS ORDERED: [UNRECOGNIZED DRUG - REMARK] IV ONE (09:15)
[2022-02-02] MEDS ORDERED: ACETAMINOPHEN 325 MG TABLET PO ONE (09:15)
[2022-02-02] MEDS ORDERED: diphenhydrAMINE 25 MG TAB (BENADRYL) PO ONE (09:15)
[2022-02-02 09:21] VITALS: BP 122/69
[2022-02-02 09:24] LABS: BASOPHILS # (AUTO) 0.1 10^3/uL (0.0-0.1); BASOPHILS % (AUTO) 1 % (0-10); EOSINOPHILS # (AUTO) 0.3 10^3/uL (0.0-0.3); EOSINOPHILS % (AUTO) 5 % (0-10); HEMATOCRIT 36 % (35-52); HEMOGLOBIN 11.4 g/dL (11.5-16.0); LYMPHOCYTES % (AUTO) 29 % (12-44); MEAN CORPUSCULAR HEMOGLOBIN 28 pg (25-34); MEAN CORPUSCULAR HGB CONC 32 g/dL (32-36); MEAN CORPUSCULAR VOLUME 86 fL (80-99); MEAN PLATELET VOLUME 9.1 fL (9.0-12.2); MONOCYTES # (AUTO) 0.5 10^3/uL (0.0-1.0); MONOCYTES % (AUTO) 7 % (0-12); NEUTROPHILS % (AUTO) 58 % (42-75); PLATELET COUNT 303 10^3/uL (130-400)
[2022-02-02 09:43] LABS: CREATININE SERUM 1.04 MG/DL (0.60-1.30)
== END 2022-02-03 | disposition home or self-care (01) ==
LOC: SDC 08:41
PROVIDERS: ATTEND Internal Medicine Rheumatology
DX: Z51.81 Encounter for therapeutic drug level monitoring (principal); M05.79 Rheumatoid arthritis with rheumatoid factor of multiple sites without organ or systems involvement; Z79.899 Other long term (current) drug therapy
CPT/HCPCS: 36415; 82565; 84450; 84460; 85025; 86141; 96365; J0129

== ENCOUNTER → 2022-03-02 | Outpatient (CLI) | payer MEDICARE, OTHER ==
[~2022-03-02] MED LIST changes: +ACETAMINOPHEN 325 MG TABLET PO ONE; +[UNRECOGNIZED DRUG - REMARK] IV SCH; +diphenhydrAMINE 25 MG TAB (BENADRYL) PO ONE
[2022-03-02 08:50] VITALS: BP 119/77
[2022-03-02 09:29] LABS: BASOPHILS % (AUTO) 1 % (0-10); EOSINOPHILS # (AUTO) 0.3 10^3/uL (0.0-0.3); EOSINOPHILS % (AUTO) 4 % (0-10); HEMATOCRIT 35 % (35-52); HEMOGLOBIN 11.1 g/dL (11.5-16.0); LYMPHOCYTES # (AUTO) 1.9 10^3/uL (1.0-4.0); LYMPHOCYTES % (AUTO) 30 % (12-44); MEAN CORPUSCULAR HEMOGLOBIN 27 pg (25-34); MEAN CORPUSCULAR HGB CONC 32 g/dL (32-36); MEAN CORPUSCULAR VOLUME 85 fL (80-99); MEAN PLATELET VOLUME 9.3 fL (9.0-12.2); MONOCYTES # (AUTO) 0.5 10^3/uL (0.0-1.0); MONOCYTES % (AUTO) 8 % (0-12); NEUTROPHILS # (AUTO) 3.8 10^3/uL (1.8-7.8); NEUTROPHILS % (AUTO) 58 % (42-75); PLATELET COUNT 301 10^3/uL (130-400); WHITE BLOOD COUNT 6.6 10^3/uL (4.3-11.0)
[2022-03-02 09:55] LABS: CREATININE SERUM 1.07 MG/DL (0.60-1.30)
== END ==
LOC: SDC 08:41
PROVIDERS: ATTEND Internal Medicine Rheumatology
DX: Z51.81 Encounter for therapeutic drug level monitoring (principal); M05.79 Rheumatoid arthritis with rheumatoid factor of multiple sites without organ or systems involvement
CPT/HCPCS: 36415; 82565; 84450; 84460; 85025; 86141; 96365; J0129

== ENCOUNTER → 2022-04-04 | Outpatient (CLI) | payer MEDICARE, OTHER ==
[~2022-04-04] MED LIST changes: +ACETAMINOPHEN 325 MG TABLET ONE
[2022-04-04 08:00] VITALS: BP 114/55
[2022-04-04 08:20] LABS: BASOPHILS # (AUTO) 0.1 10^3/uL (0.0-0.1); BASOPHILS % (AUTO) 1 % (0-10); EOSINOPHILS # (AUTO) 0.3 10^3/uL (0.0-0.3); EOSINOPHILS % (AUTO) 4 % (0-10); HEMATOCRIT 35 % (35-52); LYMPHOCYTES # (AUTO) 1.8 10^3/uL (1.0-4.0); LYMPHOCYTES % (AUTO) 28 % (12-44); MEAN CORPUSCULAR HEMOGLOBIN 27 pg (25-34); MEAN CORPUSCULAR HGB CONC 32 g/dL (32-36); MEAN CORPUSCULAR VOLUME 86 fL (80-99); MEAN PLATELET VOLUME 9.4 fL (9.0-12.2); MONOCYTES # (AUTO) 0.4 10^3/uL (0.0-1.0); MONOCYTES % (AUTO) 7 % (0-12); NEUTROPHILS # (AUTO) 3.9 10^3/uL (1.8-7.8); NEUTROPHILS % (AUTO) 60 % (42-75); PLATELET COUNT 274 10^3/uL (130-400); WHITE BLOOD COUNT 6.5 10^3/uL (4.3-11.0)
[2022-04-04 08:42] LABS: CREATININE SERUM 1.03 MG/DL (0.60-1.30)
== END ==
LOC: SDC 07:43
PROVIDERS: ATTEND Internal Medicine Rheumatology
DX: Z51.81 Encounter for therapeutic drug level monitoring (principal); M05.79 Rheumatoid arthritis with rheumatoid factor of multiple sites without organ or systems involvement
CPT/HCPCS: 36415; 82565; 84450; 84460; 85025; 86141; 96365; J0129

== ENCOUNTER → 2022-05-02 | Outpatient (CLI) | payer MEDICARE, OTHER ==
[~2022-05-02] VITALS: Wt 54.0 kg
[~2022-05-02] MED LIST changes: +ABATACEPT IV SCH; -ACETAMINOPHEN 325 MG TABLET ONE; -ACETAMINOPHEN 325 MG TABLET PO ONE; +ACETAMINOPHEN 325 MG TABLET PO SCH; +NS IV SCH; -[UNRECOGNIZED DRUG - REMARK] IV SCH; -diphenhydrAMINE 25 MG TAB (BENADRYL) PO ONE; +diphenhydrAMINE 25 MG TAB (BENADRYL) PO SCH
[2022-05-02 08:45] VITALS: BP 112/61
[2022-05-02 09:03] LABS: BASOPHILS # (AUTO) 0.1 10^3/uL (0.0-0.1); BASOPHILS % (AUTO) 1 % (0-10); EOSINOPHILS # (AUTO) 0.2 10^3/uL (0.0-0.3); EOSINOPHILS % (AUTO) 2 % (0-10); HEMATOCRIT 32 % (35-52); HEMOGLOBIN 9.9 g/dL (11.5-16.0); LYMPHOCYTES # (AUTO) 2.1 10^3/uL (1.0-4.0); LYMPHOCYTES % (AUTO) 27 % (12-44); MEAN CORPUSCULAR HEMOGLOBIN 27 pg (25-34); MEAN CORPUSCULAR HGB CONC 31 g/dL (32-36); MEAN CORPUSCULAR VOLUME 86 fL (80-99); MEAN PLATELET VOLUME 10.3 fL (9.0-12.2); MONOCYTES # (AUTO) 0.6 10^3/uL (0.0-1.0); MONOCYTES % (AUTO) 7 % (0-12); NEUTROPHILS # (AUTO) 4.9 10^3/uL (1.8-7.8); NEUTROPHILS % (AUTO) 62 % (42-75); PLATELET COUNT 279 10^3/uL (130-400); WHITE BLOOD COUNT 7.8 10^3/uL (4.3-11.0)
[2022-05-02 09:22] LABS: CREATININE SERUM 0.95 MG/DL (0.60-1.30)
== END ==
LOC: SDC 07:30
PROVIDERS: ATTEND Internal Medicine Rheumatology
DX: M05.79 Rheumatoid arthritis with rheumatoid factor of multiple sites without organ or systems involvement (principal); Z51.81 Encounter for therapeutic drug level monitoring
CPT/HCPCS: 36415; 82565; 84450; 84460; 85025; 86141; 96365; J0129

== ENCOUNTER → 2022-05-30 | Outpatient (CLI) | payer MEDICARE, OTHER ==
[~2022-05-30] MED LIST changes: -ABATACEPT IV SCH; -NS IV SCH; +[UNRECOGNIZED DRUG - REMARK] IV SCH
[2022-05-30 09:22] LABS: BASOPHILS # (AUTO) 0.1 10^3/uL (0.0-0.1); BASOPHILS % (AUTO) 1 % (0-10); EOSINOPHILS # (AUTO) 0.2 10^3/uL (0.0-0.3); EOSINOPHILS % (AUTO) 3 % (0-10); HEMATOCRIT 35 % (35-52); HEMOGLOBIN 11.1 g/dL (11.5-16.0); LYMPHOCYTES # (AUTO) 1.9 10^3/uL (1.0-4.0); LYMPHOCYTES % (AUTO) 26 % (12-44); MEAN CORPUSCULAR HEMOGLOBIN 27 pg (25-34); MEAN CORPUSCULAR HGB CONC 32 g/dL (32-36); MEAN CORPUSCULAR VOLUME 86 fL (80-99); MEAN PLATELET VOLUME 9.3 fL (9.0-12.2); MONOCYTES # (AUTO) 0.5 10^3/uL (0.0-1.0); MONOCYTES % (AUTO) 6 % (0-12); NEUTROPHILS # (AUTO) 4.6 10^3/uL (1.8-7.8); NEUTROPHILS % (AUTO) 64 % (42-75); PLATELET COUNT 312 10^3/uL (130-400); WHITE BLOOD COUNT 7.2 10^3/uL (4.3-11.0)
[2022-05-30 09:26] VITALS: BP 116/79
[2022-05-30 09:40] LABS: CREATININE SERUM 0.94 MG/DL (0.60-1.30)
== END ==
LOC: SDC 08:55
PROVIDERS: ATTEND Internal Medicine Rheumatology
DX: Z51.81 Encounter for therapeutic drug level monitoring (principal); M05.79 Rheumatoid arthritis with rheumatoid factor of multiple sites without organ or systems involvement
CPT/HCPCS: 36415; 82565; 84450; 84460; 85025; 86141; 96365; J0129

== ENCOUNTER → 2022-06-27 | Outpatient (CLI) | payer MEDICARE, OTHER ==
[~2022-06-27] VITALS: Ht 157 cm; Wt 54.0 kg
[~2022-06-27] MED LIST changes: +[UNRECOGNIZED DRUG - REMARK] IV ONE; -[UNRECOGNIZED DRUG - REMARK] IV SCH
[2022-06-27 09:10] LABS: BASOPHILS % (AUTO) 1 % (0-10); EOSINOPHILS # (AUTO) 0.2 10^3/uL (0.0-0.3); EOSINOPHILS % (AUTO) 3 % (0-10); HEMATOCRIT 35 % (35-52); HEMOGLOBIN 11.1 g/dL (11.5-16.0); LYMPHOCYTES # (AUTO) 1.9 10^3/uL (1.0-4.0); LYMPHOCYTES % (AUTO) 33 % (12-44); MEAN CORPUSCULAR HEMOGLOBIN 27 pg (25-34); MEAN CORPUSCULAR HGB CONC 32 g/dL (32-36); MEAN CORPUSCULAR VOLUME 85 fL (80-99); MEAN PLATELET VOLUME 9.7 fL (9.0-12.2); MONOCYTES # (AUTO) 0.4 10^3/uL (0.0-1.0); MONOCYTES % (AUTO) 7 % (0-12); NEUTROPHILS # (AUTO) 3.3 10^3/uL (1.8-7.8); NEUTROPHILS % (AUTO) 56 % (42-75); PLATELET COUNT 276 10^3/uL (130-400); WHITE BLOOD COUNT 5.9 10^3/uL (4.3-11.0)
[2022-06-27 09:16] VITALS: BP 100/58
[2022-06-27 09:28] LABS: CREATININE SERUM 1.09 MG/DL (0.60-1.30)
== END ==
LOC: SDC 08:41
PROVIDERS: ATTEND Internal Medicine Rheumatology
DX: Z51.81 Encounter for therapeutic drug level monitoring (principal); M05.79 Rheumatoid arthritis with rheumatoid factor of multiple sites without organ or systems involvement
CPT/HCPCS: 36415; 82565; 84450; 84460; 85025; 86141; 96365; J0129

== ENCOUNTER 2022-07-12 08:18 | Outpatient (CLI) | payer MEDICARE, OTHER ==
[~2022-07-12] VITALS: Ht 157.5 cm; Wt 54.0 kg
[~2022-07-12 08:18] MED LIST changes: -ACETAMINOPHEN 325 MG TABLET PO SCH; -[UNRECOGNIZED DRUG - REMARK] IV ONE; -diphenhydrAMINE 25 MG TAB (BENADRYL) PO SCH
[2022-07-12 08:30] VITALS: BP 155/72
[2022-07-12] MEDS ORDERED: diphenhydrAMINE 25 MG TAB (BENADRYL) PO ONE (08:30)
[2022-07-12] MEDS ORDERED: ACETAMINOPHEN 325 MG TABLET PO ONE (08:30)
[2022-07-12] MEDS ORDERED: ZOLEDRONATE (RECLAST) 5 MG/100 ML IV ONE (09:00)
== END 2022-07-12 10:10 | disposition home or self-care (01) ==
LOC: SDC 08:18
PROVIDERS: ATTEND Internal Medicine
DX: M81.8 Other osteoporosis without current pathological fracture (principal)

== ENCOUNTER → 2022-07-25 | Outpatient (CLI) | payer MEDICARE, OTHER ==
[~2022-07-25] MED LIST changes: +ACETAMINOPHEN 325 MG TABLET ONE; +ACETAMINOPHEN 325 MG TABLET PO ONE; +[UNRECOGNIZED DRUG - REMARK] IV SCH; +diphenhydrAMINE 25 MG TAB (BENADRYL) PO ONE
[2022-07-25 08:38] LABS: BASOPHILS # (AUTO) 0.1 10^3/uL (0.0-0.1); BASOPHILS % (AUTO) 1 % (0-10); EOSINOPHILS # (AUTO) 0.3 10^3/uL (0.0-0.3); EOSINOPHILS % (AUTO) 4 % (0-10); HEMATOCRIT 34 % (35-52); HEMOGLOBIN 10.8 g/dL (11.5-16.0); LYMPHOCYTES # (AUTO) 1.9 10^3/uL (1.0-4.0); LYMPHOCYTES % (AUTO) 26 % (12-44); MEAN CORPUSCULAR HEMOGLOBIN 27 pg (25-34); MEAN CORPUSCULAR HGB CONC 32 g/dL (32-36); MEAN CORPUSCULAR VOLUME 84 fL (80-99); MEAN PLATELET VOLUME 9.3 fL (9.0-12.2); MONOCYTES # (AUTO) 0.6 10^3/uL (0.0-1.0); MONOCYTES % (AUTO) 8 % (0-12); NEUTROPHILS # (AUTO) 4.4 10^3/uL (1.8-7.8); NEUTROPHILS % (AUTO) 60 % (42-75); PLATELET COUNT 298 10^3/uL (130-400); WHITE BLOOD COUNT 7.3 10^3/uL (4.3-11.0)
[2022-07-25 09:04] LABS: CREATININE SERUM 1.04 MG/DL (0.60-1.30)
[2022-07-25 09:19] VITALS: BP 129/52
== END ==
LOC: SDC 08:11
PROVIDERS: ATTEND Internal Medicine Rheumatology
DX: Z51.81 Encounter for therapeutic drug level monitoring (principal); M05.79 Rheumatoid arthritis with rheumatoid factor of multiple sites without organ or systems involvement
CPT/HCPCS: 36415; 82565; 84450; 84460; 85025; 86141; 96365; J0129

== ENCOUNTER → 2022-08-22 | Outpatient (CLI) | payer MEDICARE, OTHER ==
[~2022-08-22] MED LIST changes: +ABATACEPT IV SCH; +NS IV SCH; -[UNRECOGNIZED DRUG - REMARK] IV SCH
[2022-08-22 09:00] VITALS: BP 122/76
[2022-08-22 09:17] LABS: BASOPHILS # (AUTO) 0.1 10^3/uL (0.0-0.1); BASOPHILS % (AUTO) 1 % (0-10); EOSINOPHILS # (AUTO) 0.3 10^3/uL (0.0-0.3); EOSINOPHILS % (AUTO) 5 % (0-10); HEMATOCRIT 34 % (35-52); HEMOGLOBIN 10.6 g/dL (11.5-16.0); LYMPHOCYTES # (AUTO) 1.7 10^3/uL (1.0-4.0); LYMPHOCYTES % (AUTO) 27 % (12-44); MEAN CORPUSCULAR HEMOGLOBIN 26 pg (25-34); MEAN CORPUSCULAR HGB CONC 32 g/dL (32-36); MEAN CORPUSCULAR VOLUME 83 fL (80-99); MEAN PLATELET VOLUME 9.3 fL (9.0-12.2); MONOCYTES # (AUTO) 0.5 10^3/uL (0.0-1.0); MONOCYTES % (AUTO) 8 % (0-12); NEUTROPHILS # (AUTO) 3.7 10^3/uL (1.8-7.8); NEUTROPHILS % (AUTO) 59 % (42-75); PLATELET COUNT 312 10^3/uL (130-400); WHITE BLOOD COUNT 6.3 10^3/uL (4.3-11.0)
[2022-08-22 09:21] LABS: CREATININE SERUM 0.98 MG/DL (0.60-1.30)
== END ==
LOC: SDC 07:59
PROVIDERS: ATTEND Internal Medicine Rheumatology
DX: M05.79 Rheumatoid arthritis with rheumatoid factor of multiple sites without organ or systems involvement (principal); Z51.81 Encounter for therapeutic drug level monitoring
CPT/HCPCS: 36415; 82565; 84450; 84460; 85025; 86141; 96365; J0129

== ENCOUNTER → 2022-09-19 | Outpatient (CLI) | payer MEDICARE, OTHER ==
[~2022-09-19] MED LIST changes: -ACETAMINOPHEN 325 MG TABLET ONE
[2022-09-19 08:32] LABS: BASOPHILS # (AUTO) 0.1 10^3/uL (0.0-0.1); BASOPHILS % (AUTO) 1 % (0-10); EOSINOPHILS # (AUTO) 0.3 10^3/uL (0.0-0.3); EOSINOPHILS % (AUTO) 4 % (0-10); HEMATOCRIT 37 % (35-52); HEMOGLOBIN 11.6 g/dL (11.5-16.0); LYMPHOCYTES # (AUTO) 1.9 10^3/uL (1.0-4.0); LYMPHOCYTES % (AUTO) 26 % (12-44); MEAN CORPUSCULAR HEMOGLOBIN 26 pg (25-34); MEAN CORPUSCULAR HGB CONC 31 g/dL (32-36); MEAN CORPUSCULAR VOLUME 83 fL (80-99); MEAN PLATELET VOLUME 9.2 fL (9.0-12.2); MONOCYTES # (AUTO) 0.3 10^3/uL (0.0-1.0); MONOCYTES % (AUTO) 4 % (0-12); NEUTROPHILS # (AUTO) 4.8 10^3/uL (1.8-7.8); NEUTROPHILS % (AUTO) 65 % (42-75); PLATELET COUNT 323 10^3/uL (130-400); WHITE BLOOD COUNT 7.4 10^3/uL (4.3-11.0)
[2022-09-19 08:42] VITALS: BP 111/61
== END ==
LOC: SDC 08:05
PROVIDERS: ATTEND Internal Medicine Rheumatology
DX: Z51.81 Encounter for therapeutic drug level monitoring (principal); M05.79 Rheumatoid arthritis with rheumatoid factor of multiple sites without organ or systems involvement
CPT/HCPCS: 36415; 82565; 84450; 84460; 85025; 86141; 96365; J0129

== ENCOUNTER → 2022-10-24 | Outpatient (CLI) | payer MEDICARE, OTHER ==
[~2022-10-24] MED LIST changes: +ABATACEPT IV ONE; -ABATACEPT IV SCH; +ACETAMINOPHEN 325 MG TABLET ONE; +NS IV ONE; -NS IV SCH
[2022-10-24 08:51] LABS: BASOPHILS % (AUTO) 1 % (0-10); EOSINOPHILS # (AUTO) 0.3 10^3/uL (0.0-0.3); EOSINOPHILS % (AUTO) 4 % (0-10); HEMATOCRIT 33 % (35-52); HEMOGLOBIN 10.5 g/dL (11.5-16.0); LYMPHOCYTES % (AUTO) 31 % (12-44); MEAN CORPUSCULAR HEMOGLOBIN 27 pg (25-34); MEAN CORPUSCULAR HGB CONC 32 g/dL (32-36); MEAN CORPUSCULAR VOLUME 82 fL (80-99); MEAN PLATELET VOLUME 9.4 fL (9.0-12.2); MONOCYTES # (AUTO) 0.5 10^3/uL (0.0-1.0); MONOCYTES % (AUTO) 8 % (0-12); NEUTROPHILS # (AUTO) 3.6 10^3/uL (1.8-7.8); NEUTROPHILS % (AUTO) 56 % (42-75); PLATELET COUNT 305 10^3/uL (130-400); WHITE BLOOD COUNT 6.4 10^3/uL (4.3-11.0)
[2022-10-24 09:07] VITALS: BP 95/50
[2022-10-24 09:07] LABS: CREATININE SERUM 0.96 MG/DL (0.60-1.30)
== END ==
LOC: SDC 08:15
PROVIDERS: ATTEND Internal Medicine Rheumatology
DX: Z51.81 Encounter for therapeutic drug level monitoring (principal); M05.79 Rheumatoid arthritis with rheumatoid factor of multiple sites without organ or systems involvement
CPT/HCPCS: 36415; 82565; 84450; 84460; 85025; 86141; 96365; J0129

== ENCOUNTER 2022-11-21 09:07 | Outpatient (CLI) | payer MEDICARE, OTHER ==
[~2022-11-21 09:07] MED LIST changes: -ABATACEPT IV ONE; -ACETAMINOPHEN 325 MG TABLET ONE; -ACETAMINOPHEN 325 MG TABLET PO ONE; -NS IV ONE; -diphenhydrAMINE 25 MG TAB (BENADRYL) PO ONE
[2022-11-21 09:29] LABS: BASOPHILS # (AUTO) 0.1 10^3/uL (0.0-0.1); BASOPHILS % (AUTO) 1 % (0-10); EOSINOPHILS # (AUTO) 0.5 10^3/uL (0.0-0.3); EOSINOPHILS % (AUTO) 5 % (0-10); HEMATOCRIT 35 % (35-52); HEMOGLOBIN 10.8 g/dL (11.5-16.0); LYMPHOCYTES # (AUTO) 2.2 10^3/uL (1.0-4.0); LYMPHOCYTES % (AUTO) 24 % (12-44); MEAN CORPUSCULAR HEMOGLOBIN 26 pg (25-34); MEAN CORPUSCULAR HGB CONC 31 g/dL (32-36); MEAN CORPUSCULAR VOLUME 84 fL (80-99); MEAN PLATELET VOLUME 9.3 fL (9.0-12.2); MONOCYTES # (AUTO) 0.6 10^3/uL (0.0-1.0); MONOCYTES % (AUTO) 7 % (0-12); NEUTROPHILS # (AUTO) 5.6 10^3/uL (1.8-7.8); NEUTROPHILS % (AUTO) 63 % (42-75); PLATELET COUNT 306 10^3/uL (130-400); WHITE BLOOD COUNT 8.9 10^3/uL (4.3-11.0)
[2022-11-21] MEDS ORDERED: ABATACEPT IV SCH (09:30)
[2022-11-21] MEDS ORDERED: NS IV SCH (09:30)
[2022-11-21] MEDS ORDERED: ACETAMINOPHEN 325 MG TABLET PO ONE (09:30)
[2022-11-21] MEDS ORDERED: diphenhydrAMINE 25 MG TAB (BENADRYL) PO ONE (09:30)
[2022-11-21 09:47] LABS: CREATININE SERUM 1.02 MG/DL (0.60-1.30)
[2022-11-21 09:56] VITALS: BP 125/65
== END 2022-11-21 10:15 | disposition home or self-care (01) ==
LOC: SDC 09:07
PROVIDERS: ATTEND Internal Medicine Rheumatology
DX: M05.79 Rheumatoid arthritis with rheumatoid factor of multiple sites without organ or systems involvement (principal)
CPT/HCPCS: 36415; 82565; 84450; 84460; 85025; 86141; 96365; J0129

== ENCOUNTER → 2022-12-19 | Outpatient (CLI) | payer MEDICARE, OTHER ==
[~2022-12-19] MED LIST changes: +ABATACEPT IV SCH; +ACETAMINOPHEN 325 MG TABLET PO ONE; +NS IV SCH; +diphenhydrAMINE 25 MG TABLET PO ONE
[2022-12-19 09:05] VITALS: BP 107/68
[2022-12-19 09:24] LABS: BASOPHILS % (AUTO) 1 % (0-10); EOSINOPHILS # (AUTO) 0.8 10^3/uL (0.0-0.3); EOSINOPHILS % (AUTO) 12 % (0-10); HEMATOCRIT 33 % (35-52); HEMOGLOBIN 10.1 g/dL (11.5-16.0); LYMPHOCYTES % (AUTO) 28 % (12-44); MEAN CORPUSCULAR HEMOGLOBIN 26 pg (25-34); MEAN CORPUSCULAR HGB CONC 30 g/dL (32-36); MEAN CORPUSCULAR VOLUME 85 fL (80-99); MEAN PLATELET VOLUME 9.4 fL (9.0-12.2); MONOCYTES # (AUTO) 0.4 10^3/uL (0.0-1.0); MONOCYTES % (AUTO) 6 % (0-12); NEUTROPHILS # (AUTO) 3.8 10^3/uL (1.8-7.8); NEUTROPHILS % (AUTO) 53 % (42-75); PLATELET COUNT 295 10^3/uL (130-400); WHITE BLOOD COUNT 7.1 10^3/uL (4.3-11.0)
[2022-12-19 09:40] LABS: CREATININE SERUM 1.17 MG/DL (0.60-1.30)
== END ==
LOC: SDC 08:45
PROVIDERS: ATTEND Internal Medicine Rheumatology
DX: Z51.81 Encounter for therapeutic drug level monitoring (principal); M05.79 Rheumatoid arthritis with rheumatoid factor of multiple sites without organ or systems involvement
CPT/HCPCS: 36415; 82565; 84450; 84460; 85025; 86141; 96365; J0129

== ENCOUNTER → 2023-01-16 | Outpatient (CLI) | payer MEDICARE, OTHER ==
[~2023-01-16] MED LIST changes: +ACETAMINOPHEN 325 MG TABLET ONE
[2023-01-16 08:05] VITALS: BP 118/72
[2023-01-16 08:34] LABS: BASOPHILS % (AUTO) 1 % (0-10); EOSINOPHILS # (AUTO) 0.6 10^3/uL (0.0-0.3); EOSINOPHILS % (AUTO) 10 % (0-10); HEMATOCRIT 33 % (35-52); HEMOGLOBIN 10.1 g/dL (11.5-16.0); LYMPHOCYTES # (AUTO) 1.9 10^3/uL (1.0-4.0); LYMPHOCYTES % (AUTO) 30 % (12-44); MEAN CORPUSCULAR HEMOGLOBIN 26 pg (25-34); MEAN CORPUSCULAR HGB CONC 31 g/dL (32-36); MEAN CORPUSCULAR VOLUME 85 fL (80-99); MEAN PLATELET VOLUME 9.2 fL (9.0-12.2); MONOCYTES # (AUTO) 0.5 10^3/uL (0.0-1.0); MONOCYTES % (AUTO) 7 % (0-12); NEUTROPHILS # (AUTO) 3.3 10^3/uL (1.8-7.8); NEUTROPHILS % (AUTO) 52 % (42-75); PLATELET COUNT 302 10^3/uL (130-400); WHITE BLOOD COUNT 6.4 10^3/uL (4.3-11.0)
[2023-01-16 09:07] LABS: CREATININE SERUM 1.16 MG/DL (0.60-1.30)
== END ==
LOC: SDC 07:49
PROVIDERS: ATTEND Internal Medicine Rheumatology
DX: Z51.81 Encounter for therapeutic drug level monitoring (principal); M05.79 Rheumatoid arthritis with rheumatoid factor of multiple sites without organ or systems involvement
CPT/HCPCS: 36415; 82565; 84450; 84460; 85025; 86141; 96365; J0129

== ENCOUNTER → 2023-02-13 | Outpatient (CLI) | payer MEDICARE, OTHER ==
[~2023-02-13] VITALS: Ht 157 cm; Wt 52.7 kg
[2023-02-13 09:09] LABS: BASOPHILS % (AUTO) 1 % (0-10); EOSINOPHILS # (AUTO) 0.5 10^3/uL (0.0-0.3); EOSINOPHILS % (AUTO) 6 % (0-10); HEMATOCRIT 34 % (35-52); HEMOGLOBIN 10.5 g/dL (11.5-16.0); LYMPHOCYTES % (AUTO) 28 % (12-44); MEAN CORPUSCULAR HEMOGLOBIN 27 pg (25-34); MEAN CORPUSCULAR HGB CONC 31 g/dL (32-36); MEAN CORPUSCULAR VOLUME 85 fL (80-99); MEAN PLATELET VOLUME 9.2 fL (9.0-12.2); MONOCYTES # (AUTO) 0.4 10^3/uL (0.0-1.0); MONOCYTES % (AUTO) 6 % (0-12); NEUTROPHILS # (AUTO) 4.2 10^3/uL (1.8-7.8); NEUTROPHILS % (AUTO) 59 % (42-75); PLATELET COUNT 309 10^3/uL (130-400); WHITE BLOOD COUNT 7.1 10^3/uL (4.3-11.0)
[2023-02-13 09:23] VITALS: BP 116/67
[2023-02-13 09:26] LABS: CREATININE SERUM 1.1 MG/DL (0.60-1.30)
== END ==
LOC: SDC 08:46
PROVIDERS: ATTEND Internal Medicine Rheumatology
DX: Z51.81 Encounter for therapeutic drug level monitoring (principal); M05.79 Rheumatoid arthritis with rheumatoid factor of multiple sites without organ or systems involvement
CPT/HCPCS: 36415; 82565; 84450; 84460; 85025; 86141; 96365; J0129

== ENCOUNTER → 2023-03-13 | Outpatient (CLI) | payer MEDICARE, OTHER ==
[~2023-03-13] MED LIST changes: -ACETAMINOPHEN 325 MG TABLET ONE
[2023-03-13 08:20] VITALS: BP 120/74
[2023-03-13 08:51] LABS: BASOPHILS # (AUTO) 0.1 10^3/uL (0.0-0.1); BASOPHILS % (AUTO) 1 % (0-10); EOSINOPHILS # (AUTO) 0.7 10^3/uL (0.0-0.3); EOSINOPHILS % (AUTO) 9 % (0-10); HEMATOCRIT 34 % (35-52); HEMOGLOBIN 10.6 g/dL (11.5-16.0); LYMPHOCYTES % (AUTO) 27 % (12-44); MEAN CORPUSCULAR HEMOGLOBIN 26 pg (25-34); MEAN CORPUSCULAR HGB CONC 31 g/dL (32-36); MEAN CORPUSCULAR VOLUME 85 fL (80-99); MEAN PLATELET VOLUME 9.2 fL (9.0-12.2); MONOCYTES # (AUTO) 0.4 10^3/uL (0.0-1.0); MONOCYTES % (AUTO) 6 % (0-12); NEUTROPHILS # (AUTO) 4.3 10^3/uL (1.8-7.8); NEUTROPHILS % (AUTO) 57 % (42-75); PLATELET COUNT 305 10^3/uL (130-400); WHITE BLOOD COUNT 7.5 10^3/uL (4.3-11.0)
[2023-03-13 09:11] LABS: CREATININE SERUM 1.04 MG/DL (0.60-1.30)
== END ==
LOC: SDC 08:02
PROVIDERS: ATTEND Internal Medicine Rheumatology
DX: Z51.81 Encounter for therapeutic drug level monitoring (principal); M05.79 Rheumatoid arthritis with rheumatoid factor of multiple sites without organ or systems involvement
CPT/HCPCS: 36415; 82565; 84450; 84460; 85025; 86141; J0129

== ENCOUNTER → 2023-04-10 | Outpatient (CLI) | payer MEDICARE, OTHER ==
[2023-04-10 09:45] VITALS: BP 98/64
[2023-04-10 10:06] LABS: BASOPHILS # (AUTO) 0.1 10^3/uL (0.0-0.1); BASOPHILS % (AUTO) 1 % (0-10); EOSINOPHILS # (AUTO) 0.8 10^3/uL (0.0-0.3); EOSINOPHILS % (AUTO) 12 % (0-10); HEMATOCRIT 34 % (35-52); HEMOGLOBIN 10.4 g/dL (11.5-16.0); LYMPHOCYTES % (AUTO) 29 % (12-44); MEAN CORPUSCULAR HEMOGLOBIN 26 pg (25-34); MEAN CORPUSCULAR HGB CONC 30 g/dL (32-36); MEAN CORPUSCULAR VOLUME 85 fL (80-99); MEAN PLATELET VOLUME 9.5 fL (9.0-12.2); MONOCYTES # (AUTO) 0.5 10^3/uL (0.0-1.0); MONOCYTES % (AUTO) 7 % (0-12); NEUTROPHILS # (AUTO) 3.5 10^3/uL (1.8-7.8); NEUTROPHILS % (AUTO) 51 % (42-75); PLATELET COUNT 295 10^3/uL (130-400); WHITE BLOOD COUNT 6.9 10^3/uL (4.3-11.0)
[2023-04-10 10:16] LABS: CREATININE SERUM 1.09 MG/DL (0.60-1.30)
== END ==
LOC: SDC 08:14
PROVIDERS: ATTEND Internal Medicine Rheumatology
DX: Z51.81 Encounter for therapeutic drug level monitoring (principal); M05.79 Rheumatoid arthritis with rheumatoid factor of multiple sites without organ or systems involvement
CPT/HCPCS: 36415; 82565; 84450; 84460; 85025; 86141; 96365; J0129